=== PATIENT | male | born 1960 | race Caucasian/White ===

== ENCOUNTER → 2022-01-24 15:11 | Outpatient (CLI) | payer BC, SELFPAY ==
--- NOTE | ~2022-01-24 | US_ITS ---
EXAMINATION: US soft tissue head and neck DATE: 01/24/2022 15:29 INDICATION: Localized swelling, mass, and lump, head and neck. TECHNIQUE: Multiple grayscale and Doppler ultrasound images of the neck were obtained. COMPARISON: None FINDINGS: There are normal lymph nodes in left neck in the patient's area of concern. No abnormal mas s. IMPRESSION: 1. Normal lymph nodes in left neck in the patient's area of concern. Reviewed, dictated and finalized at location E.
== END ==
PROVIDERS: PCP Family Medicine; Visit Provider Nurse Practitioner Family
DX: R22.1 Localized swelling, mass and lump, neck (principal)
CPT/HCPCS: 76536

== ENCOUNTER 2022-03-03 03:58 | Day surgery (SDC) | payer BC, SELFPAY ==
[2022-02-16 13:43] VITALS: BMI 32.2
--- NOTE | 2022-03-03 08:46 | WPDANESEPPF ---
Anes - Initial Pre Proc Eval Procedure: Operation Date: 03/03/22 10:30 Proposed Procedures p Screening Colonoscopy - Aníbal Hutchison MD Date/Time: 03/03/22 08:46 Surgeon: Aníbal Hutchison MD Pre Op Diagnosis: neoplasm screening Patient Data Age: 61 Gender: M Height: 1.8 m Weight: 104.9 kg Allergies Allergy/AdvReac Type Severity Reaction Status Date / Time Sulfa (Sulfonamide Allergy Mild Itching Verified 03/03/22 09:17 Antibiotics) Home Medications Medication Instructions Recorded Confirmed Type ascorbate calcium (vitamin C) 500 500 mg PO DAILY 02/02/21 02/16/22 History mg tablet cholecalciferol (vitamin D3) 125 125 mcg PO DAILY 02/02/21 02/16/22 History mcg (5,000 unit) capsule atenolol 50 mg tablet 50 mg PO DAILY #90 tabs 12/12/21 02/16/22 Rx amlodipine 5 mg tablet 5 mg PO DAILY #90 tabs 01/13/22 02/16/22 Rx sodium sul 1.479 gram-potas ch See Rx Instructions PO PER PKG DIR 01/26/22 02/16/22 Rx 0.188 gram-magnes sul 0.225 gram #24 tabs tablet (Sutab) Patient hx anesthesia problems: none Family hx anesthesia problems: none Results Review: All pre-operative results and documents have been reviewed as part of the pre-operative evaluation. [facility]LY [facility], [facility] Past Medical History Medical History (Updated 03/03/22 @ 08:47 by Daniel Pulido MD) Anxiety HTN (hypertension) Obesity Surgical History Surgical History Status post hernia repair as a child Family History Family History Father Hypertension Mother Hypertension Diabetes mellitus Social History Social History Smoking status: Never smoker Second hand tobacco smoke exposure: No Alcohol intake: never Substance use: never Substance use type: does not use Living arrangements: with family Gender identity (if verbalized by the patient): Male Sexual Orientation (if Verbalized by the Patient): Straight or Heterosexual Spiritual care concerns: No Anes - Eval Final PreProcedure Day of Procedure 03/03/22 08:46 Patient weight: obese Heart: regular rate and rhythm Lungs: clear to auscultation and normal air movement Airway: Mallampati scale class II Neurological: alert and oriented Last oral intake: >/= 8 hours ASA classification: III Emergent: no Anesthetic plan: proceed Anesthesia type and monitoring: general GIVS Results Review: All pre-operative results and documents have been reviewed as part of the pre-operative evaluation. Informed Consent: The patient's anesthetic plan and its attendant risks and benefits were discussed with the patient/family/POA. Questions were solicited and answers provided to the satisfaction of the patient/family/POA.
[2022-03-03 09:18] VITALS: BP 158/95; PULSE 82; RESP 20; TEMP 36.9; O2SAT 100; BMI 31.0
[2022-03-03] MEDS: LACTATED RINGERS 1,000 ML 150 ML IV CONT (09:30)
--- NOTE | 2022-03-03 09:44 | P.HP_ITS ---
H&P: HPI History of Present Illness Date/Time: 03/03/22 09:44 Chief Complaint: Neoplasia screening. Narrative: This is a 61-year-old white male patient presents for screening colonoscopy. His last exam was 10 years ago. Patient reports his current weight appetite and bowel movements are normal. He denies abdominal pain. Did experience a brief episode of bright red blood per rectum 2 years ago that was attributed to hemorrhoids. Patient presents today for neoplasia screening. Review of Systems Review of Systems: Review of systems noncontributory. [facility] Past Medical History Medical History (Updated 03/03/22 @ 09:46 by Aníbal Hutchison MD) Anxiety HTN (hypertension) Obesity Surgical History Surgical History Status post hernia repair as a child Family History Family History Father Hypertension Mother Hypertension Diabetes mellitus Social History Social History Smoking status: Never smoker Second hand tobacco smoke exposure: No Alcohol intake: never Substance use: never Substance use type: does not use Living arrangements: with family Gender identity (if verbalized by the patient): Male Sexual Orientation (if Verbalized by the Patient): Straight or Heterosexual Spiritual care concerns: No Meds Home Medications and Allergies Home Medications Medication Instructions Recorded Confirmed Type ascorbate calcium (vitamin C) 500 500 mg PO DAILY 02/02/21 02/16/22 History mg tablet cholecalciferol (vitamin D3) 125 125 mcg PO DAILY 02/02/21 02/16/22 History mcg (5,000 unit) capsule atenolol 50 mg tablet 50 mg PO DAILY #90 tabs 12/12/21 02/16/22 Rx amlodipine 5 mg tablet 5 mg PO DAILY #90 tabs 01/13/22 02/16/22 Rx sodium sul 1.479 gram-potas ch See Rx Instructions PO PER PKG DIR 01/26/22 02/16/22 Rx 0.188 gram-magnes sul 0.225 gram #24 tabs tablet (Sutab) Allergies Allergy/AdvReac Type Severity Reaction Status Date / Time Sulfa (Sulfonamide Allergy Mild Itching Verified 03/03/22 09:17 Antibiotics) Vital Signs Vital Signs - 24 hr 03/03/22 09:18 Temperature 98.4 F Pulse Rate 82 Respiratory Rate 20 Blood Pressure 158/95 H Pulse Oximetry 100 Oxygen Delivery Room Air Exam Narrative: Physical exam reveals patient to be alert. Vital signs stable. HEENT exam is unremarkable. Patient is anicteric. Lungs are clear to auscultation and percussion. Heart is without murmur or extra sounds. Abdominal exam bowel sounds are present soft nontender with no organomegaly. Digital external rectal exam is normal. Assessment and Plan Assessment and plan (1) Encounter for screening colonoscopy: Code(s): Z12.11 - Encounter for screening for malignant neoplasm of colon Status: Acute Assessment and Plan: Patient presents for screening colonoscopy. Plan is for colonoscopy to be performed today. Further recommendations may be given after endoscopy.
[2022-03-03 10:37] VITALS: BP 110/75; PULSE 75; RESP 26; O2SAT 98
[2022-03-03 10:47] VITALS: BP 120/81; PULSE 78; RESP 21; O2SAT 99
[2022-03-03 10:57] VITALS: BP 131/82; PULSE 65; RESP 17; O2SAT 100
== END 2022-03-03 11:00 | disposition home or self-care (01) ==
PROVIDERS: PCP Family Medicine; Visit Provider Internal Medicine Gastroenterology
PROC: 0DJD8ZZ Inspection of Lower Intestinal Tract, Via Natural or Artificial Opening Endoscopic (ICD-10-PCS; CPT 45378; principal; 2022-03-03 10:30)
DX: Z12.11 Encounter for screening for malignant neoplasm of colon (principal); K64.8 Other hemorrhoids; I10 Essential (primary) hypertension; F41.9 Anxiety disorder, unspecified; E66.9 Obesity, unspecified; Z68.31 Body mass index [BMI] 31.0-31.9, adult
CPT/HCPCS: 45378; J2704; J7120

== ENCOUNTER 2024-10-22 15:08 | Outpatient (CLI) | payer MEDICARE, SELFPAY ==
--- OUTSIDE RECORDS SUMMARY | 2024-10-22 15:44 | XMS_ITS | Clinical Summary ---
Author Organization [facility] Address [address] [place] [address] Care Team Providers Care Database Marketing Analyst Name Role Phone Santos Cain MD Primary Care Provider [phone] Source Comments [facility],non-owned Affiliates and Associated Physician Practices is amultiple site organization consisting of ambulatory clinics and hospital sitesin [place], [place], [place] and [place]. This disclosure is being madepursuant to the Care Everywhere program and may not contain all information available regarding this patient. Last updated 18.[facility] Allergies Active Allergy Reactions Criticality Noted Date Comments Sulfa Drugs Itching Low 07/06/2022 Medications * Be aware that medications may not be up to date on this document. Alwaysverify current medications with the patient. Medication Sig Dispensed Refills Start Date End Date Status losartan (Cozaar) 50 MG tablet Take 1 (one) tablet by mouth 2 times daily 90 tablet 24 08/31/2022 Active clindamycin (Cleocin) 1 % lotion APPLY TOPICALLY TO THE AFFECTED AREA EVERY MORNING 08/22/2022 Active atenolol (Tenormin) 50 MG tablet TAKE 1 TABLET BY MOUTH EVERY MORNING AND 0.5 TABLET BY MOUTH EVERY NIGHT AT BEDTIME 45 tablet 11 02/15/2024 Active prazosin (Minipress) 2 MG capsuleIndications: Essential hypertension,Dyslip idemia,Dyspnea on exertion TAKE 1 CAPSULE BY MOUTH AT BEDTIME FOR HIGH BLOOD PRESSURE 90 capsule 1 03/09/2024 Active Social History Tobacco Use Types Packs/Day Years Used Date Smoking Tobacco: Never Smokeless Tobacco: Never Tobacco Cessation:Counseling Given: Not Answered Alcohol Use Standard Drinks/Week Comments Never 0 (1 standard drink = 0.6 oz pur e alcohol) PHQ-2 Answer Date Recorded Patient Health Questionnaire-2 Score 0 01/21/2024 Sex and Gender Information Value Date Recorded Sex Assigned at Not on file Gender Identity Male 09/08/2023 3:45 PM RRT Sexual Orientation Not on file Last Filed Vital Signs Vital Sign Reading Time Taken Comments Blood Pressure 142/100 01/21/2024 2:02 PM CDT Pulse 60 01/21/2024 2:02 PM CDT Temperature - - Respiratory Rate 12 01/21/2024 2:02 PM CDT Oxygen Saturation 99% 01/21/2024 2:02 PM CDT Inhaled Oxygen Concentration - - Weight 101.2 kg (223 lb) 01/21/2024 2:02 PM CDT Height 180.3 cm (5' 11 ) 01/21/2024 2:02 PM CDT Body Mass Index 31.1 01/21/2024 2:02 PM CDT Plan of Treatment Health Maintenance Due Date Last Done Comments COLOGUARD (AGES 45-75) - COL ON CA SCREENING 1959 COLON MONITORING 1959 COLONOSCOPY - COLON CA SCREENING 1959 CT COLONOGRAPHY - COLON CA SCREENING 1959 Colorectal Cancer Screening 1959 FIT - COLON CA SCREENING 1959 FLEX SIG - COLON CA SCREENING 1959 LIPID TESTING 1959 HIV SCREENING 1974 HEPATITIS C SCREENING 04/16/1977 DTAP/TDAP/TD VACCINES (1 - Tdap) 1978 PNEUMOCOCCAL VACCINE 50+ (1 of 1 - PCV) 2009 ZOSTER VACCINE (1 of 2) 2009 SCREENING FOR DIABETES 10/04/2023 COVID-19 VACCINE (1 - 2023-2 5 season) 2024 DEPRESSION SCREENING 09/17/2024 10/04/2023 Respiratory Syncytial Virus (RSV) Vaccine Pt: or over 60 yrs (1 - 1-dose 75+ series) 2034 INFLUENZA VACCINE Completed 07/06/2024, 07/09/2023 HEPATITIS B VACCINE Aged Out No longe r eligible based on patient's age to complete this topic HIB VACCINE Aged Out No longer eligi ble based on patient's age to complete this topic HPV VACCINE Aged Out No longer eligi ble based on patient's age to complete this topic MENINGOCOCCAL (Group B) VACCINE Aged Out No longer eligible b ased on patient's age to complete this topic MENINGOCOCCAL VACCINE Aged Out No gerhard mari eligible based on patient's age to complete this topic Care Teams Database Marketing Analyst Relationship Specialty Start Date End Date Santos Cain MD [address] [place] [address] PCP - General Family Medicine 10/03/23
--- OUTSIDE RECORDS SUMMARY | 2024-10-22 15:44 | XMS_ITS | Patient Health Summary ---
Author Organization [facility] [employer] Address [address] [place] [address] Care Team Providers Care Remote Operations Producer Name Role Phone Santos Cain MD Primary Care Provider [phone] Note from [facility],non-owned Affiliates and Associated Physician Practices is amultiple site organization consisting of ambulatory clinics and hospital sitesin [place], [place], [place] and [place]. This disclosure is being madepursuant to the Care Everywhere program and may not contain all information available regarding this patient. Last updated 18.[facility] Allergies * Sulfa Drugs(Itching) -Low Criticality Medications * Be aware that medications may not be up to date on this document. Alwaysverify current medications with the patient. * losartan (Cozaar) 50 MG tablet(Started 08/31/2022) Take 1 (one) tablet by mouth 2 times daily 24 refills remaining * clindamycin (Cleocin) 1 % lotion(Started 08/22/2022) APPLY TOPICALLY TO THE AFFECTED AREA EVERY MORNING * atenolol (Tenormin) 50 MG tablet(Started 02/15/2024) TAKE 1 TABLET BY MOUTH EVERY MORNING AND 0.5 TABLET BY MOUTH EVERY NIGHT AT BEDTIME 11 refills by 02/14/2025 * prazosin (Minipress) 2 MG capsule(Started 03/09/2024) TAKE 1 CAPSULE BY MOUTH AT BEDTIME FOR HIGH BLOOD PRESSURE 1 refill by 03/09/2025 Social History Tobacco Use Types Packs/Day Years [...] file Gender Identity Male 09/08/2023 3:45 PM CLINIC [facility] Sexual Orientation Not on file Last Filed [...] Mass Index 31.1 01/21/2024 2:02 PM CDT Procedures * DERMATOPATHOLOGY(Performed 04/30/2024) * CT CARDIAC ANGIO W KARISHMA EVAL(Performed 01/11/2024) Performed for Essential hypertension, Dyslipidemia, Dyspnea on exertion * CT CORONARY CALCIUM SCORING(Performed 01/11/2024) Performed for Essential hypertension, Dyslipidemia, Dyspnea on exertion * LAB RESULTS ORDER(Performed 12/13/2023) * EKG 12-LEAD(Performed 10/04/2023) Performed for Essential hypertension Results * DERMATOPATHOLOGY (04/30/2024 12:00 AM CDT) Case Report Dermatopathology Report Case: [id number] Authorizing Provider: Paul Vergara MD Collected: 04/30/2024 12:00 AM Ordering Location: [facility] - Received: 05/05/2024 07:18 AM DermPath Lab Pathologist: Indigo Garvin MD Specimen: Skin, right inferior medial chest 2:51 PM CDT DERMATOPATHOLOGY LABORATORY Final Diagnosis Specimen A. SKIN, right inferior medial chest: HEALING SKIN CHANGES, TELANGIECTASES, AND DERMAL FIBROSIS (L90.5) (see microscopic description and comment) 2:51 PM T DERMATOPATHOLOGY LABORATORY Clinical History R/O Inflamed Cyst 2:51 PM CDT DERMATOPATHOLOGY LABORATORY Gross Description Specimen A: Received is one formalin filled container labeled with the patient's name and designated right inferior medial chest. The specimen consists of a punch biopsy measuring 8x8x7 mm. Jar 0. 2:51 PM CDT DERMATOPATHOLOGY LABORATORY Microscopic Description Specimen A. SKIN, right inferior medial chest: There is epidermal hyperplasia beneath which there are vascular proliferation, fibroblasts, and an edematous stroma. Within the dermis there are also dilated thin-walled vessels lined by a single layer of endothelium, as well as focal dermal fibrosis. COMMENT: The histologic differential diagnosis includes a traumatized hemangioma, changes associated with healing skin, and changes associated with a ruptured follicle or cyst. 2:51 PM CDT DERMATOPATHOLOGY LABORATORY Disclaimer An external and internal positive and negative controls are appropriate for the histochemical, immunohistochemical and immunofluorescence stain(s) in this case (if any), except where stated explicitly. The performance characteristics of the stain(s) cited in this report were developed and its performance characteristic determined by the Dermatopathology Laboratory at [facility], directed by Dr. Luis Jama. These tests need not be, and therefore are not, approved by the [place] Food and Drug Administration. The tests are used for clinical purposes. Billing Codes Specimen Charges Stain Charges 62548 1 2:51 PM CDT DERMATOPATHOLOGY LABORATORY Embedded Images 2:51 PM CDT DERMATOPATHOLOGY LABORATORY Pathology/Cytolog y TISSUE SPECIMEN FROM SKIN / Unknown 04/30/2024 05/05/2024 7:18 AM CDT Paul Vergara MD LAB - PATHOLOGY/CYTO LOGY ORDERABLES DERMATOPATHOLOGY LABORATORY [facility] - Department of Dermatology [address], [address] [phone] * CT CARDIAC ANGIO W KARISHMA EVAL (01/11/2024 9:34 AM CDT) Anatomical Region Laterality Modality Chest Computed Tomogra phy 01/11/2024 10:0 2 AM CDT Impressions 01/11/2024 10:31 AM CDT IMPRESSION: No hemodynamically significant coronary arterial stenosis seen at CT coronary angiography > Interpreting Provider: Baldomero Murrell JR, MD on 01/11/2024 10:31 AM Narrative 01/11/2024 10:[address] ANGIOGRAM CARDIAC Indication: Chest pain, hypertension, coronary artery disease Helical CT angiography of the heart was performed with retrospective cardiac gating. Approximately 100 mL Isovue-370 contrast was administered IV. The patient was given a single 0.4 mg sublingual nitroglycerin and a single 5 mg IV metoprolol dose prior to the procedure. Segmentation of the coronary arteries was created in 2-D and 3-D volume-rendered techniques at a separate work station. FINDINGS: The heart rate at the time of the exam was 63 bpm. There are no coronary artery anomalies. The calculated left ventricular ejection fraction is 61%. The left main, left anterior descending, left circumflex, and right coronary arteries are widely patent. There is no hemodynamically significant coronary arterial stenosis seen at CT coronary angiography. Please note that the patient had a calcium scoring scan just prior to the CT coronary angiography which shows tiny, subtle calcified atheromatous changes in the distal RCA and distal left circumflex with a calcium score of 0.93. These calcifications are so tiny and subtle but they are not visualized on the CT coronary angiography study Heart size is normal. There is no pericardial effusion. There is no thoracic aortic aneurysm or dissection. Aortic and mitral valves have unremarkable CT appearances. There is no mediastinal or hilar lymphadenopathy. Visualized portions of the lungs are clear. Procedure Note Baldomero Murrell MD - 01/11/2024 CT ANGIOGRAM CARDIAC Indication: Chest pain, hypertension, coronary artery disease Helical CT angiography of the heart was performed with retrospective cardiac gating. Approximately 100 mL Isovue-370 contrast wasadministered IV. The patient was given a single 0.4 mg sublingual nitroglycerin and a single 5 mg IV metoprolol dose prior to the procedure. Segmentation ofthe coronary arteries was created in 2-D and 3-D volume-rendered techniquesat a separate work station. FINDINGS: The heart rate at the time of the exam was 63 bpm. There are no coronary artery anomalies. The calculated left ventricular ejection fraction is 61%. The left main, left anterior descending, left circumflex, and right coronary arteries are widely patent. There is no hemodynamically significant coronary arterial stenosis seen at CT coronary angiography. Please note that the patient had a calcium scoring scan just prior tothe CT coronary angiography which shows tiny, subtle calcified atheromatous changes in the distal RCA and distal left circumflex with a calciumscore of 0.93. These calcifications are so tiny and subtle but they are not visualized on the CT coronary angiography study Heart size is normal. There is no pericardial effusion. There is no thoracic aortic aneurysm or dissection. Aortic and mitral valves have unremarkable CT appearances. There is no mediastinal or hilar lymphadenopathy. Visualized portions of the lungs are clear. IMPRESSION: No hemodynamically significant coronary arterial stenosis seen at CT coronary angiography > Interpreting Provider: Baldomero Murrell JR, MD on 01/11/2024 10:31 AM [address]ido Rene MD CT ORDERABLES * CT CALCIUM SCORING (01/11/2024 9:33 AM CDT) Anatomical Region Laterality Modality Chest Computed Tomogra phy 01/11/2024 9:59 AM CDT Impressions 01/11/2024 10:02 AM CDT IMPRESSION: Total coronary calcium score is 0.93. In comparison to a group of patients asymptomatic for coronary artery disease with the same age and gender, 24 percent of similar patients will have a lower calcium score than this patient. Score: 0:No identifiable calcified plaques. Low likelihood of coronary obstruction. 1-10:Minimal identifiable plaque. Significant obstructive coronary artery disease is less likely. 11-100: Definite but mild plaque. Risk factor modification is recommended. 101-400: Definite moderate plaque. Over 400: Significant plaque burden. Indicates likelihood of significant coronary stenosis. > Interpreting Provider: Baldomero Murrell JR, MD on 01/11/2024 10:02 AM Narrative 01/11/2024 10:02 AM CDT PROCEDURE: CT CORONARY CALCIUM SCORING COMPARISON: No relevant available comparison. CLINICAL INFORMATION (none relevant/not provided if blank): Indication: I10: Essential (primary) hypertension E78.5: Hyperlipidemia, unspecified R06.09: Other forms of dyspnea Additional History: Screening exam for cardiovascular risk factors. TECHNIQUE: [facility] CQMS #[id number]: All CT scans at [facility]: CT dose reduction technique was used, including Automated Exposure Control. Narrow [id number], CT acquisition without intravenous contrast of the heart with attention to the coronary arteries; Cardiac scoring is performed with computer assisted analysis of plaque burden. FINDINGS: Given the narrow [id number]: Visualized lungs are clear without pneumothorax, pleural effusion or consolidation. In the visualized mediastinum, no hilar or axillary lymphadenopathy. The imaged portion of the upper abdomen is unremarkable for a nonenhanced study. Osseous structures demonstrate no significant/relevant findings. CORONARY ARTERY CALCIFICATION: Left Main: 0 sq mm; Score: 0 LAD: 0 sq mm; Score: 0 LCX: 0.74 sq mm; Score: 0.62 PDA: 0 sq mm; Score: 0 RCA: 0.37 sq mm; Score: 0.31 TOTAL CORONARY SCORE: 1.11 sq mm; score: 0.93 Procedure Note Baldomero Murrell MD - 01/11/2024 PROCEDURE: CT CORONARY CALCIUM SCORING COMPARISON: No relevant available comparison. CLINICAL INFORMATION (none relevant/not provided if blank): Indication: I10: Essential (primary) hypertension E78.5: Hyperlipidemia, unspecified R06.09: Other forms of dyspnea Additional History: Screening exam for cardiovascular risk factors. TECHNIQUE: [facility] CQMS #436: All CT scans at [facility]: CT dose reduction technique wasused, including Automated Exposure Control. Narrow [id number], CT acquisition without intravenous contrast of the heart with attention to the coronary arteries; Cardiac scoring isperformed with computer assisted analysis of plaque burden. FINDINGS: Given the narrow [id number]: Visualized lungs are clear without pneumothorax, pleural effusion or consolidation. In the visualized mediastinum, no hilar or axillary lymphadenopathy. The imaged portion of the upper abdomen is unremarkable for anonenhanced study. Osseous structures demonstrate no significant/relevant findings. CORONARY ARTERY CALCIFICATION: Left Main: 0 sq mm; Score: 0 LAD: 0 sq mm; Score: 0 LCX: 0.74 sq mm; Score: 0.62 PDA: 0 sq mm; Score: 0 RCA: 0.37 sq mm; Score: 0.31 TOTAL CORONARY SCORE: 1.11 sq mm; score: 0.93 IMPRESSION: Total coronary calcium score is 0.93. In comparison to a group ofpatients asymptomatic for coronary artery disease with the same age and gender,24 percent of similar patients will have a lower calcium score than this patient. Score: 0:No identifiable calcified plaques. Low likelihood of coronary obstruction. 1-10:Minimal identifiable plaque. Significant obstructive coronaryartery disease is less likely. 11-100: Definite but mild plaque. Risk factor modification isrecommended. 101-400: Definite moderate plaque. Over 400: Significant plaque burden. Indicates likelihood of significant coronary stenosis. > Interpreting Provider: Baldomero Murrell JR, MD on 01/11/2024 10:02 AM [address] Rene MD CT ORDERABLES * LAB RESULTS ORDER (12/13/2023) 12/13/2023 Narrative 12/13/2023 Ordered by an unspecified provider. Scanned Document LAB - THERAPEUTIC DR TAYLOR MONITORING ORDERABLES * EKG 12-LEAD (10/04/2023 10:47 AM CLINIC [facility]) Ventricular Rate 58 BPM SJ SL MED GRP MUSE Atrial Rate 58 BPM [facility] SL ME D GRP MUSE P-R Interval 180 ms SJ SL M ED GRP MUSE QRS Duration ms 108 ms SJ S L MED GRP MUSE Q-T Interval ms 402 ms SJ S L MED GRP MUSE QTC Calculation (Bezet) 394 ms SJ SL MED GRP MUSE Calculated P [place] 1 degrees SJ SL MED GRP MUSE Calculated R [place] 11 degrees SJ SL MED GRP MUSE Calculated T [place] 24 degrees SJ SL MED GRP MUSE Interpretation EKG Sinus bradycardia Otherwise normal ECG No previous ECGs available Confirmed by GUIDO RENE MD ([id number]) on 11/16/2023 2:02:55 PM [facility] MED GRP MUSE 10/04/2023 10:4 7 AM CLINIC [facility] 11/16/2023 2:02 PM CLINIC [facility] Guido Rene MD ECG ORDERABLES SJ SL MED GRP MUSE Care Teams Remote Operations Producer Relationship Specialty Start Date End Date Santos Cain MD [address] [place] [address] PCP - General Family Medicine 10/03/23
--- OUTSIDE RECORDS SUMMARY | 2024-10-22 15:44 | XMS_ITS | Clinical Summary ---
Author Organization [facility] Address [address] [place] [address] Care Team Providers Care Wheel Tuner Name Role Phone Santos Cain MD Primary Care Provider Allergies Active Allergy Reactions Criticality Noted Date Comments Sulfa (Sulfonamide Antibiotics) Itching Low 06/18 Medications clindamycin (CLEOCIN T) 1 % lotion APPLY TOPICALLY TO THE AFFECTED AREA EVERY MORNING 2 Active chlorhexidine (PERIDEX) 0.12 % solution RINSE WITH ONE CAPFUL FOR 30 SECONDS TWICE DAILY . USE UNTIL ALL TAKEN 2 Active atenoloL (TENORMIN) 50 mg tabletIndications :Essential hypertension,Dysp avis on exertion TAKE 1 TABLET BY MOUTH EVERY MORNING AND 0.5 TABLET BY MOUTH EVERY NIGHT AT BEDTIME 135 tablet 1 3 Active chlorthalidone (HYGROTON) 25 mg tabletIndications :Hypertension, unspecified type Take 0.5 tablets (12.5 mg total) by mouth daily 15 tablet 11 3 Active losartan (COZAAR) 50 mg tabletIndications :Essential hypertension Take 3 tablets (150 mg total) by mouth daily Take 2 tabs in the morning and 1 tab at night. 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 Obesity 11/22/2023 Medical History Medical History Date Comments Hypertension Hemorrhoids Social History Tobacco Use Types Packs/Day Years Used Date Smoking Tobacco: Never Personal Safety Answer Date Recorded Getting School Help Needed Not on file 08/29 Sex and Gender Information Value Date Recorded Sex Assigned at Not on file Legal Sex Male 2:25 AM COUNSELOR SUPERVISOR Gender Identity Male 08/08/2022 11:56 AM COUNSELOR SUPERVISOR Sexual Orientation Straight 08/08/2022 11 :56 AM COUNSELOR SUPERVISOR Obstetrics History Last Filed Vital Signs Vital Sign Reading Time Taken Comments Blood Pressure 146/80 09/03/2023 9:09 AM COUNSELOR SUPERVISOR Pulse 63 09/03/2023 9:09 AM COUNSELOR SUPERVISOR Temperature - - Respiratory Rate 18 07/06/2022 10:56 AM CDT Oxygen Saturation 99% 09/03/2023 9:09 AM COUNSELOR SUPERVISOR Inhaled Oxygen Concentration - - Weight 103 kg (227 lb) 09/03/2023 9:09 AM COUNSELOR SUPERVISOR Height 180.3 cm (5' 11 ) 09/03/2023 9:09 AM COUNSELOR SUPERVISOR Body Mass Index 31.66 09/03/2023 9:09 AM COUNSELOR SUPERVISOR Plan of Treatment Health Maintenance Due Date Last Done Comments Colon Cancer Screening-Colonoscopy 1959 Depression Screening 1959 Fall Risk Assessment 1959 Hepatitis C Screening 1959 Prostate Cancer Screening-PSA 1959 DTaP/Tdap/Td Vaccine (1 - Tdap) 1970 Hepatitis B Screening 1977 Zoster Vaccine (1 of 2) 2009 Pneumococcal vaccine 65+ (1 of 1 - PCV) 2024 Well Visit 65+ 2024 Covid-19 Vaccine (5 - 2023-2 5 season) 2024 06/20/2022, 07/22/2021, 11/27/2020, Additional history exists Influenza Vaccine (#1) 2024 07/09/2023, 2019 Insurance [employer] [place]ESS CHOICE [place] Care Teams Wheel Tuner Relationship Specialty Start Date End Date Santos Cain MD [address] [facility] [address] [place] [address] PCP - General Family Medicine 07/06/22
--- OUTSIDE RECORDS SUMMARY | 2024-10-22 15:44 | XMS_ITS | Encounter Summary ---
Author Organization [facility] Address [address] [place] [address] Care Team Providers Care Access Clerk Name Role Phone Santos Cain MD Primary Care Provider [phone] Encounter Details Date Type Department Care Team (Late st Contact Info) Description 05/02/2024 Lab Requisition [facility] - DermPath Lab [address] [facility] [place] [address] Paul Vergara MD [address] [place], [place] [id number] Social History Tobacco Use Types Packs/Day Years Used Date Smoking Tobacco: Never Smokeless Tobacco: Never Alcohol Use Standard Drinks/Week Comments Never 0 (1 standard drink = 0.6 oz pur e alcohol) PHQ-2 Answer Date Recorded Patient Health Questionnaire-2 Score 0 01/21/2024 Sex and Gender Information Value Date Recorded Sex Assigned at Not on file Gender Identity Male 09/08/2023 3:45 PM 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 Sexual Orientation Not on file documented as of this encounter Plan of Treatment Not on file documented as of this encounter Procedures Procedure Name Priority Date/Time Associated Diagnosis Comments DERMATOPATHOLOGY Routine 04/30/2024 12:0 0 AM CDT documented in this encounter Results * DERMATOPATHOLOGY (04/30/2024 12:00 AM CDT) Case Report Dermatopathology Report Case: [id number] Authorizing Provider: Paul Vergara MD Collected: 04/30/2024 12:00 AM Ordering Location: [facility] - Received: 05/05/2024 07:18 AM DermPath Lab Pathologist: Indigo Garvin MD Specimen: Skin, right inferior medial chest 2:51 PM CDT DERMATOPATHOLOGY LABORATORY Final Diagnosis Specimen A. SKIN, right inferior medial chest: HEALING SKIN CHANGES, TELANGIECTASES, AND DERMAL FIBROSIS (L90.5) (see microscopic description and comment) 2:51 PM CDT DERMATOPATHOLOGY LABORATORY Clinical History R/O Inflamed Cyst [...] characteristic determined by the Dermatopathology Laboratory at [facility], directed by Dr. Luis Jama. These tests need not be, and therefore are not, approved by the [place] Food and Drug Administration. The tests are used for clinical purposes. Billing Codes Specimen Charges Stain Charges 76119 1 2:51 PM CDT DERMATOPATHOLOGY LABORATORY Embedded Images 08/20/202 4 2:51 PM CDT DERMATOPATHOLOGY LABORATORY Pathology/Cytolog y TISSUE SPECIMEN FROM SKIN / Unknown 04/30/2024 05/05/2024 7:18 AM CDT Paul Vergara MD LAB - PATHOLOGY/CYTO LOGY ORDERABLES DERMATOPATHOLOGY LABORATORY [facility] - Department of Dermatology [facility] [address] [place] [address], [address] [phone] documented in this encounter Visit Diagnoses Not on filedocumented in this encounter Care Teams Access Clerk Relationship Specialty Start Date End Date Santos Cain MD [address] [place] [address] PCP - General Family Medicine 10/03/23 documented as of this encounter
--- OUTSIDE RECORDS SUMMARY | 2024-10-22 15:44 | XMS_ITS | Referral Summary ---
Author Organization [facility] Address [address] [facility] [place] [address] Care Team Providers Care Daytime Babysitter Name Role Phone Santos Cain MD Primary Care Provider [phone] Source Comments [facility],non-owned Affiliates and Associated Physician Practices is amultiple site organization consisting of ambulatory clinics and hospital sitesin [place], [place], [place] and [place]. This disclosure is being madepursuant to the Care Everywhere program and may not contain all information available regarding this patient. Last updated 18.[facility] Allergies Active Allergy Reactions Criticality Noted Date [...] file Gender Identity Male 09/08/2023 3:45 PM BONE CHAR PULLER Sexual Orientation Not on file Last Filed [...] 01/21/2024 2:02 PM CDT Plan of Treatment Not on file Care Teams Daytime Babysitter Relationship Specialty Start Date End Date Santos Cain MD [address] [place] [address] PCP - General Family Medicine 10/03/23
--- OUTSIDE RECORDS SUMMARY | 2024-10-22 15:44 | XMS_ITS | Referral Summary ---
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 Obesity 11/22/2023 Social History Tobacco Use Types Packs/Day Years Used Date Smoking Tobacco: Never Personal Safety Answer Date Recorded Getting School Help Needed Not on file 08/29 Sex and Gender Information Value Date Recorded Sex Assigned at Not on file Legal Sex Male 2:25 AM UNDERGROUND REPAIRER Gender Identity Male 08/08/2022 11:56 AM UNDERGROUND REPAIRER Sexual Orientation Straight 08/08/2022 11 :56 AM UNDERGROUND REPAIRER Last Filed Vital Signs Vital Sign Reading Time Taken Comments Blood Pressure 146/80 09/03/2023 9:09 AM UNDERGROUND REPAIRER Pulse 63 09/03/2023 9:09 AM UNDERGROUND REPAIRER Temperature - - Respiratory Rate 18 07/06/2022 10:56 AM CDT Oxygen Saturation 99% 09/03/2023 9:09 AM UNDERGROUND REPAIRER Inhaled Oxygen Concentration - - Weight 103 kg (227 lb) 09/03/2023 9:09 AM UNDERGROUND REPAIRER Height 180.3 cm (5' 11 ) 09/03/2023 9:09 AM UNDERGROUND REPAIRER Body Mass Index 31.66 09/03/2023 9:09 AM UNDERGROUND REPAIRER Plan of Treatment [place] [address] [email or web address] [place] Care Teams Rubber And Plastics Worker Relationship Specialty Start Date End Date Santos Cain MD [address] [facility] [address] [place] [id number] PCP - General Family Medicine 07/06/22
[2024-10-23 14:11] LABS: Influenza A QL RT-PCR Negative (Negative); Influenza B QL RT-PCR Negative (Negative); RSV RNA, RT-PCR Negative (Negative); SARS-CoV-2 RNA PCR Negative (Negative)
== END 2024-10-22 15:09 | disposition home or self-care (01) ==
LOC: ANHLAB 15:12
PROVIDERS: PCP Family Medicine; Visit Provider Physician Assistant
DX: J02.9 Acute pharyngitis, unspecified (principal); R05.9 Cough, unspecified; Z20.822 Contact with and (suspected) exposure to COVID-19
CPT/HCPCS: 87637